=== PATIENT | male | born 1940 | race Caucasian/White ===

== ENCOUNTER 2018-06-16 09:46 | Emergency (ER) | payer MEDICARE, BC ==
--- NOTE | 2018-06-16 10:17 | EDM.PDOC ---
ED HPI GENERAL MEDICAL PROBLEM - General Chief Complaint: Gastrointestinal Problem Stated Complaint: Rectal pain Time Seen by Provider: 06/16/18 10:00 Source of Information: Reports: Patient, Family (spouse) History Limitations: Reports: No Limitations - History of Present Illness INITIAL COMMENTS - FREE TEXT/NARRATIVE: 77-year-old male presents to the ED with a swelling at the rectum that he noticed this morning when wiping. States that the lesion is not painful. He said previous hemorrhoidectomy both internally externally at age 23. Stools are soft and he said no recent diarrhea. No prolonged standing. Eyes any fever or chills. Bowel movement was not painful this morning. Onset: Today Onset Date: 06/16/18 Onset Time: 07:30 (Appreciated swelling of the perianal tissues when wiping after bowel movements this morning) Duration: Minutes: Location: Reports: Other (Rectal tissue swelling) Quality: Reports: Ache Severity: Mild Improves with: Reports: None (Very minimal ache) Worsens with: Reports: None Context: Denies: Activity, Exercise, Lifting, Sick Contact, Trauma, Other Associated Symptoms: Denies: No Other Symptoms, Confusion, Chest Pain, Cough, cough w sputum, Diaphoresis, Fever/Chills, Headaches, Loss of Appetite, Malaise Treatments LATEX CASTER: Reports: Other (see below) - Related Data Allergies Allergy/AdvReac Type Severity Reaction Status Date / Time No Known Allergies Allergy Verified 06/16/18 09:56 Home Meds: Home Meds Hydrocortisone [Anusol-HC] 30 gm RC TID #1 tube 06/16/18 [Rx] amLODIPine [Norvasc] 5 mg PO DAILY 06/16/18 [History] Past Medical History Cardiovascular History: Reports: Hypertension Oncologic (Cancer) History: Reports: Prostate - Past Surgical History GI Surgical History: Reports: Other (See Below) Other GI Surgeries/Procedures: hemmoroid repair Male Surgical History: Reports: Prostatectomy Social & Family History - Living Situation & Occupation Living situation: Reports: Occupation: Retired ED ROS GENERAL - Review of Systems Review Of Systems: See Below Constitutional: Reports: No Symptoms HEENT: Reports: Glasses Respiratory: Reports: No Symptoms Cardiovascular: Reports: No Symptoms, Blood Pressure Problem (Not noted to have hypertension blood pressure elevated today at 167/67.) Endocrine: Reports: No Symptoms GI/Abdominal: Reports: No Symptoms, Mucous in Stool : Reports: Frequency (Has an enlarged prostate and has urinary frequency with nocturia 2 or 3), Other Musculoskeletal: Reports: Joint Pain (Vocational pains knees hips and lower back ) Skin: Reports: No Symptoms Neurological: Reports: No Symptoms Psychiatric: Reports: No Symptoms Hematologic/Lymphatic: Reports: No Symptoms Immunologic: Reports: No Symptoms ED EXAM, GI/ABD - Physical Exam Exam: See Below Exam Limited By: No Limitations General Appearance: Alert, WD/WN, Anxious (Mildly anxious) Rectal (Males) Exam: Hemorrhoids (External hemorrhoid), Other (Examination was limited to the perianal tissues. Patient has a 8mm fluid-filled slightly bluish discoloration due to a thrombosed external hemorrhoid at the 5 o'clock position. It is minimally tender. Active bleeding.) Course - Vital Signs Last Recorded V/S: Last Vital Signs Temp 36.8 C 06/16/18 09:53 Pulse 60 06/16/18 09:53 Resp 16 06/16/18 09:53 BP 167/67 H 06/16/18 09:53 Pulse Ox 96 06/16/18 09:53 - Radiology Interpretation Free Text/Narrative:: 77-year-old male presents to the ED with a noted swelling perianal tissues this morning after wiping after bowel movement. States the lesion is not painful. He has no fever or chills. He said previous external and internal hemorrhoidectomy at age 23. On examination he has a very small thrombosed hemorrhoid at the 5 o' clock position mostly fluid-filled with a very slight thrombus at the proximal end of the lesion. Treatment is conservative this with sitz baths twice daily and application of Anusol HC after sitz bath and at bedtime until the lesion resolves. He was advised to take 5-7 days for the lesion to dissipate . He will keep his stool soft Departure - Departure Time of Disposition: 10:13 Disposition: Home, Self-Care 01 Condition: Fair Clinical Impression: Thrombosed external hemorrhoid - Discharge Information *PRESCRIPTION DRUG MONITORING PROGRAM REVIEWED*: Not Applicable *COPY OF PRESCRIPTION DRUG MONITORING REPORT IN PATIENT MARCUS: Not Applicable Prescriptions: Hydrocortisone [Anusol-HC] 30 gm RC TID #1 tube Instructions: Hemorrhoids, [id number] Referrals: Jose D Harding MD [Primary Care Provider] - Forms: ED Department Discharge Additional Instructions: Evaluation the emergency room today in regards to development of a small thrombosed external hemorrhoid at 5 o'clock position of your anus. Treatment is sitting in warm bathtub water for 5-10 minutes twice daily and then applying Anusol cream to the area twice daily after bathing and then once at bedtime until the swelling goes away which will be 5-7 days. Diminished stools extremely soft is also very important. Follow-up with personal care physician if any further problems occu
== END 2018-06-16 10:24 | disposition home or self-care (01) ==
LOC: JD.ED 09:46
DX: K64.5 Perianal venous thrombosis (principal); I10 Essential (primary) hypertension; Z79.899 Other long term (current) drug therapy
CPT/HCPCS: 99283